=== PATIENT | male | born 1985 | race Caucasian/White ===

== ENCOUNTER 2018-09-30 07:56 | Outpatient (CLI) | payer OTHER ==
--- NOTE | 2018-09-30 09:47 | MRI ---
MRI LUMBAR SPINE WITHOUT CONTRAST: Date: 09/30/18 HISTORY: Spondylolysis, back pain, left lower extremity radiculopathy. TECHNIQUE: Multiplanar, multisequence MR imaging of the lumbar spine obtained without contrast. FINDINGS: On the basis of five lumbar-type vertebra bodies, conus medullaris terminates at T12-L1. T12-L1: Intervertebral disc height and signal intensity within normal limits with no significant kofi tral canal or neural foraminal stenosis. L1-2: Intervertebral disc height and signal intensity within normal limits with no central canal or neural foraminal stenosis. L2-3: Intervertebral disc height and signal intensity within normal limits with no central canal or neural foraminal stenosis. L3-4: There is disc space narrowing and mild disc bulge. There is a central annular tear and associa marv small central disc protrusion. No associated central canal stenosis. L4-5: Disc space narrowing, disc desiccation, and mild disc bulge with no central canal stenosis. Mi ld bilateral facet hypertrophy with no significant neural foraminal stenosis. L5-S1: There is disc space narrowing, disc desiccation, and degenerative end plate change. There is anterolisthesis of L5 on S1 measuring 9-10 mm on the basis of bilateral L5 pars defects. There is ass ociated severe bilateral neural foraminal stenosis. No significant central canal stenosis. Imaged retroperitoneal structures demonstrate no acute findings. IMPRESSION: Bilateral L5 pars defects with associated 9-10 mm of anterolisthesis leading to severe bilateral neur al foraminal stenosis at L5-S1. Degenerative disc disease of L3-4 and L4-5 levels as detailed above. POS: [facility]
== END 2018-09-30 07:57 | disposition home or self-care (01) ==
LOC: SCSMRI 07:56
PROVIDERS: ATTEND Family Medicine
DX: M43.06 Spondylolysis, lumbar region (principal); R10.30 Lower abdominal pain, unspecified; M43.16 Spondylolisthesis, lumbar region; M48.07 Spinal stenosis, lumbosacral region; M51.36 Other intervertebral disc degeneration, lumbar region
CPT/HCPCS: 72148

== ENCOUNTER 2019-09-07 04:57 | Emergency (ER) | payer OTHER, SELFPAY ==
[2019-09-07] MEDS ORDERED: Clindamycin 150 MG CAP ONE (05:33)
[2019-09-07] MEDS ORDERED: HYDROcodone/Acetaminophen 5/325 mg Tablet ONE (05:33)
== END 2019-09-07 05:46 | disposition home or self-care (01) ==
LOC: ERS 04:57
DX: L03.211 Cellulitis of face (principal); K04.7 Periapical abscess without sinus; F17.210 Nicotine dependence, cigarettes, uncomplicated; F17.290 Nicotine dependence, other tobacco product, uncomplicated
CPT/HCPCS: 99283